=== PATIENT | male | born 1980 | race Caucasian/White ===

== ENCOUNTER 2016-08-22 09:41 | Emergency (ER) | payer MEDICAID, OTHER ==
[~2016-08-22] VITALS: Ht 172.7 cm; Wt 94.0 kg
[2016-08-22 09:49] VITALS: Ht 172.7 cm; Wt 94.0 kg
[2016-08-22] MEDS ORDERED: LIDOCAINE 1% (MDV) 20 ML INJ INJ STA (10:58)
[2016-08-22] MEDS ORDERED: CEPH-443 PO (11:23)
[2016-08-22] MEDS ORDERED: SULF1TAB31 PO (11:23)
--- NOTE | 2016-08-22 11:27 | ERD ---
ER Documentation Chief Complaint Date/Time DATE: 08/22/16 TIME: 11:24 Chief Complaint ABCESS ON RT SIDE OF CHEST HPI 35-year-old male presents with an area of redness and swelling to his right anterior chest just at his axillary crease. It has been there for 1 week and is getting larger. It is painful when touched. There has been drainage from it. No fever. No nausea or vomiting. ROS All systems reviewed and are negative except as per history of present illness. Medications Home Meds Active Scripts Cephalexin* (Keflex*) 500 Mg Capsule, 500 MG PO QID for 7 Days, CAP Prov:CELE MARTEL PA-C 08/22/16 Sulfamethoxazole/Trimethoprim* (Bactrim Ds* Tablet) 1 Each Tablet, 1 TAB PO BID , #14 TAB Prov:CELE MARTEL PA-C 08/22/16 Allergies Allergies: Coded Allergies: No Known Allergy (Unverified , 08/22/16) PMhx/Soc Medical and Surgical Hx: pt denies Medical Hx, pt denies Surgical Hx Hx Alcohol Use: No Hx Substance Use: No Hx Tobacco Use: No Smoking Status: Never smoker FmHx Family History: No diabetes Physical Exam Vitals Vital Signs Date Time Temp Pulse Resp B/P Pulse Ox O2 Delivery O2 Flow Rate FiO2 08/22/16 09:49 98.2 67 18 128/84 98 Physical Exam General: well developed, well nourished, alert, nontoxic, no distress Head: normocephalic, atraumatic Neck: Supple, nontender, no lymphadenopathy, no midline tenderness Respiratory: Clear to auscaultation bilaterally, speaks in full sentences, no use of accesory muscles or labored breathing, no rales, ronchi, or wheezing Cardiovascular: RRR, No murmurs GI: soft, non tender, non distended, negative murphys sign, negative mcburneys point tenderness, no cva tenderness bilaterally, no rebound or guarding Back: no midline tenderness, no step offs or bony abnormalities, sensation to light touch in tact Extremities: moving all extremities normally, normal gait, no edema Skin: Right lateral chest wall has an area of erythema and induration with fluctuance approximately 3 cm in diameter with surrounding erythema, no active bleeding or drainage Results 24 hrs Current Medications Medications (Trade) Dose Ordered Sig/Bobbi Route PRN Reason Start Time Stop Time Status Last Admin Dose Admin Lidocaine (Xylocaine 1% (Mdv) 20 ml) 20 ml ONCE STAT INJ 08/22/16 10:58 08/22/16 11:00 DC Procedures/MDM 35-year-old male presents with abscess. The wound was prepped with Betadine and 1% lidocaine was used to anesthetize the wound. A small incision using an 11 blade was made and copious amounts of drainage was drained. Wound was then appropriately dressed and bandaged. Patient was given prescription for Bactrim and Keflex. Blood sugars elevated to 292, patient unsure if he has diabetes. No evidence of DKA at this time. He was given a list of outpatient clinic so he can follow up with. He was also given prescription for Bactrim and Keflex and recommended 2 day wound check. Recommended this patient follow up with her primary care doctor within 48 hours or return to the emergency room for any worsening of symptoms. However this time I do believe there is suitable for outpatient management. I answered all their questions and they agreed with the plan and were discharged home. Departure Diagnosis: Primary Impression: Abscess Condition: Stable Patient Instructions: Abscess, Incision And Drainage [facility] Usted se moreno hecho un examen mdico de control que le indica que no est en christy condicin que requiera tratamiento urgente en el Departamento de Emergencia. Un estudio ms profundo y el tratamiento de villeda condicin pueden esperar sin ningn riesgo hasta que usted sea atendida/o en el consultorio de villeda mdico o christy cl howard. Es responsabilidad suya arreglar christy lissette para el seguimiento del noemy. MANEJO DE CONDICIONES NO URGENTES EN EL FUTURO 1) Si usted tiene un mdico de atencin primaria: Usted debera llamar a villeda mdico de atencin primaria antes de venir al departamento de emergencia. Despus de las horas de consultorio, villeda doctor o villeda asociado/a est disponible por telfono. El mdico o enfermero de luz marina en el servicio telefnico puede asesorarle por martina medio para atender el problema, o noemy contrario se puede programar christy lissette. 2) Si usted no tiene un mdico de atencin primaria: Llame al mdico o clnica de referencia que aparece abajo silke las horas de consultorio para hacer christy lissette para que le vean. CLINICAS: [facility] [phone] [facility] [phone] [facility] [phone] [address] [facility] [place] [id number] [phone] [facility]. [place] [id number] [phone] [facility]. [phone] [address] Additional Instructions: Llame al doctor MAANA y danielle christy LISSETTE PARA DENTRO DE 1-2 CURTIS.Dgale a la secretaria que nosotros le instruimos hacer esta lissette.Avise o llame si villeda condicin se empeora antes de la lissette. Regresa aqui si peor o no mejor. CELE MARTEL PA-C August 22, 2016 11:27
== END 2016-08-22 11:29 | disposition home or self-care (01) ==
LOC: FTE 09:41
DX: L02.213 Cutaneous abscess of chest wall (principal)
CPT/HCPCS: 10060; 82962; Z7502